=== PATIENT | male | born 1960 | race Hispanic/Latino ===

== ENCOUNTER 2018-04-03 07:00 | Day surgery (SDC) | payer MEDICARE ==
[2018-04-01 14:45] LABS: APPEARANCE,URINE Clear (CLEAR); BILIRUBIN,URINE Negative (NEGATIVE); COLOR,URINE Yellow (YELLOW); GLUCOSE, URINE (UA) Negative (NEGATIVE); KETONES,URINE Negative (NEGATIVE); LEUKOCYTE ESTERASE ,URINE Negative (NEGATIVE); NITRATE,URINE Negative (NEGATIVE); OCCULT BLOOD,URINE Negative (NEGATIVE); PH,URINE 6.5 (5.0-8.0); PROTEIN,URINE Negative (NEGATIVE); UROBILINOGEN,URINE 0.2 mg/dL (0.2-1.0)
[2018-04-01 14:45] LABS: BASOPHILS % (AUTO) 0.5 % (0.0-5.0); EOSINOPHILS % (AUTO) 1.5 % (0.0-8.0); HEMATOCRIT 40.9 % (42-54); LYMPHOCYTES % (AUTO) 21.2 % (21.0-51.0); MEAN CORPUSCULAR HEMOGLOBIN 32.5 pg (27.0-33.0); MEAN CORPUSCULAR HGB CONC 34.4 g/dL (32.0-36.0); MEAN CORPUSCULAR VOLUME 94.4 fL (79-99); MONOCYTES % (AUTO) 7.7 % (3.0-13.0); NEUTROPHILS % (AUTO) 69.1 % (40.0-77.0); NUCLEATED RED BLOOD CELLS 0.1 % (0.0-0.19); PLATELET COUNT (AUTO) 285 K/uL (130-400); RED BLOOD CELL COUNT(AUTO) 4.33 MIL/uL (4.50-6.20); RED CELL DISTRIBUTION WIDTH 13.6 % (11.0-15.5); WHITE BLOOD COUNT (AUTO) 7.7 K/uL (4.8-10.8)
[2018-04-01 14:48] VITALS: BP 138/80
[2018-04-01 15:01] LABS: INR 0.94 (0.85-1.15); PARTIAL THROMBOPLASTIN TIME 30.3 SEC (26.3-35.5); PROTHROMBIN TIME 9.9 SEC (9.6-11.6)
[2018-04-01 15:08] LABS: CREATININE 0.9 mg/dL (0.5-1.5); POTASSIUM 4.1 mmol/L (3.5-5.1)
[~2018-04-03] VITALS: Ht 172.7 cm; Wt 94.3 kg
[2018-04-03] VITALS (19 sets, daily range): BP systolic 120–148; BP diastolic 77–93
[~2018-04-03 07:00] MED LIST: ATOR20TA65 PO; BUPR-47 PO; GABA-531 PO; LISI10TA7 PO; METO5AMP IV; SODIUM CHLORIDE 0.9% 500ML 500 ML IV SCH; TICA90TA PO
[2018-04-03] MEDS ORDERED: METO25TA6 PO (08:21)
[2018-04-03] MEDS ORDERED: LISI-613 PO (08:21)
[2018-04-03] MEDS ORDERED: IOHEXOL-350 50ML VIAL IV ONE (08:26)
[2018-04-03] MEDS ORDERED: NITROGLYCERIN 5 MG/ML 10 ML VIAL IV ONE (08:26)
[2018-04-03] MEDS ORDERED: IOHEXOL 350 MG/ML 100ML INFUS..BTL IV ONE ×2 (08:26→09:18)
[2018-04-03] MEDS ORDERED: LIDOCAINE HCL 2% 20ML ONE (08:26)
[2018-04-03] MEDS ORDERED: ROPI1TAB11 PO (08:37)
[2018-04-03] MEDS ORDERED: RANO500T2 PO (08:37)
[2018-04-03] MEDS ORDERED: LORA10CA9 PO (08:37)
[2018-04-03] MEDS ORDERED: NITR0.4T50 SL (08:37)
[2018-04-03] MEDS ORDERED: TYL3 PO (08:37)
[2018-04-03] MEDS ORDERED: TAMS0.4C32 PO (08:37)
[2018-04-03] MEDS ORDERED: AMLO10TA6 PO (08:37)
[2018-04-03] MEDS ORDERED: GABA-529 PO (08:37)
[2018-04-03] MEDS ORDERED: MIDAZOLAM HCL 1 MG/ML 2ML VIAL ONE ×2 (09:11→10:32)
[2018-04-03] MEDS ORDERED: FENTANYL CITRATE PF 50 MCG/1 ML 2ML VIAL ONE (09:12)
[2018-04-03] MEDS ORDERED: BIVALIRUDIN 250 MG/VIAL IV ONE (09:18)
[2018-04-03] MEDS ORDERED: SODIUM CHLORIDE 0.9% 1000ML 1,000 ML IV SCH (09:40)
[2018-04-03] MEDS ORDERED: GLUCAGON 1MG KIT 1 MG ML IM PRN (09:45)
[2018-04-03] MEDS ORDERED: HYDRALAZINE HCL 20 MG/ML VIAL IV PRN (09:45)
[2018-04-03] MEDS ORDERED: DEXTROSE 50%-WATER 50 ML DISP.SYRIN IV PRN (09:45)
[2018-04-03] MEDS ORDERED: ATROPINE SULFATE 0.1 MG/ML 10 ML SYG IVP ONE (10:14)
[2018-04-03] MEDS ORDERED: MORPHINE SULFATE 5 MG/ML VIAL ONE (10:32)
== END 2018-04-03 15:00 | disposition home or self-care (01) ==
LOC: SUH 07:00 → DAH 07:00 → SUH 15:00
PROVIDERS: ATTEND Internal Medicine Cardiovascular Disease
DX: I25.110 Atherosclerotic heart disease of native coronary artery with unstable angina pectoris (principal); R07.9 Chest pain, unspecified; Z79.899 Other long term (current) drug therapy; Z79.01 Long term (current) use of anticoagulants; I11.0 Hypertensive heart disease with heart failure; I50.32 Chronic diastolic (congestive) heart failure; Z68.30 Body mass index [BMI] 30.0-30.9, adult
CPT/HCPCS: 36415; 71045; 80048; 81003; 85025; 85610; 85730; 93005; 93458; A4606 ×2; C1894 ×2; J1644; J2250 ×2; J2270; J3010; J3490 ×2; Q9967 ×2; 99156; 99157; J0461; J0583

== ENCOUNTER → 2020-12-20 | Outpatient (CLI) | payer OTHER, MEDICARE ==
[~2020-12-20] MED LIST changes: +AMLO-258 PO; -BUPR-47 PO; +GABA-529 PO; -GABA-531 PO; -LISI10TA7 PO; +LISI20TA24 PO; +LORA10CA9 PO; +METO25TA6 PO; -METO5AMP IV; +NITR0.4T50 SL; +RANO500T2 PO; +ROPI1TAB13 PO; -SODIUM CHLORIDE 0.9% 500ML 500 ML IV SCH; +TAMS0.4C32 PO; +TYL3 PO
== END | disposition home or self-care (01) ==
LOC: SHCH 14:18
PROVIDERS: ATTEND Internal Medicine Cardiovascular Disease
DX: I51.7 Cardiomegaly (principal); E66.9 Obesity, unspecified; E78.5 Hyperlipidemia, unspecified
CPT/HCPCS: 93306; 93356

== ENCOUNTER 2023-09-06 17:24 | Emergency (ER) | payer OTHER, MEDICARE ==
[~2023-09-06] VITALS: Ht 175.3 cm; Wt 92.5 kg
[~2023-09-06 17:24] MED LIST changes: -ROPI1TAB13 PO; +ROPI1TAB46 PO
[2023-09-06 17:28] VITALS: BP 137/78; PULSE 108; RESP 18
[2023-09-06 18:19] LABS: BASOPHILS # (AUTO) 0.04 K/uL (0.00-0.20); BASOPHILS % (AUTO) 0.4 % (0.0-5.0); HEMATOCRIT 45.2 % (42-54); IMMATURE GRANULOCYTE ABSOLUTE 0.03 K/uL (0-1); LYMPHOCYTES % (AUTO) 19.3 % (21.0-51.0); MEAN CORPUSCULAR HEMOGLOBIN 32.2 pg (27.0-33.0); MEAN CORPUSCULAR HGB CONC 35.2 g/dL (32.0-36.0); MEAN CORPUSCULAR VOLUME 91.5 fL (79-99); MONOCYTES # (AUTO) 0.5 K/uL (0.1-1.0); MONOCYTES % (AUTO) 4.8 % (3.0-13.0); NEUTROPHILS # (AUTO) 7.9 K/uL (1.8-7.7); NEUTROPHILS % (AUTO) 75.2 % (40.0-77.0); PLATELET COUNT (AUTO) 313 K/uL (130-400); RED BLOOD CELL COUNT(AUTO) 4.94 MIL/uL (4.50-6.20); RED CELL DISTRIBUTION WIDTH 13.5 % (11.0-15.5); WHITE BLOOD COUNT (AUTO) 10.5 K/uL (4.8-10.8)
[2023-09-06 18:30] LABS: CREATININE 2.7 mg/dL (0.5-1.3); POTASSIUM 4.1 mmol/L (3.5-5.1)
[2023-09-06 18:39] LABS: ALBUMIN 4.6 g/dL (3.5-5.0); BILIRUBIN,TOTAL 0.6 mg/dL (0.2-1.0); TOTAL PROTEIN, SERUM 9.7 g/dL (6.0-8.3)
[2023-09-06] MEDS: 0.9%NACL 1000ML 1,000 ML IV ONE ×2 (19:38→22:08)
[2023-09-06 20:58] LABS: CREATININE 2.2 mg/dL (0.5-1.3); POTASSIUM 3.9 mmol/L (3.5-5.1)
[2023-09-06 21:03] LABS: BILIRUBIN,TOTAL 0.5 mg/dL (0.2-1.0); TOTAL PROTEIN, SERUM 8.7 g/dL (6.0-8.3)
[2023-09-06 23:36] LABS: APPEARANCE,URINE CLOUDY (CLEAR); BILIRUBIN,URINE NEGATIVE (NEGATIVE); COLOR,URINE YELLOW (YELLOW); GLUCOSE, URINE (UA) NEGATIVE (NEGATIVE); KETONES,URINE NEGATIVE (NEGATIVE); LEUKOCYTE ESTERASE ,URINE 75 Leu/uL (NEGATIVE); NITRATE,URINE NEGATIVE (NEGATIVE); PROTEIN,URINE 20 mg/dL (NEGATIVE); UROBILINOGEN,URINE 0.2 mg/dL (0.2-1.0)
[2023-09-06 23:37] LABS: ADD UA MICROSCOPIC YES
[2023-09-06 23:50] LABS: HYALINE CASTS, URINE 51-100 /LPF (0-1 /LPF); MUCUS,URINE RARE LPF (None Seen); SQUAMOUS EPITHELIAL CELL,UR RARE /HPF (0-2)
[2023-09-07 00:03] LABS: CREATININE 1.8 mg/dL (0.5-1.3); POTASSIUM 4.1 mmol/L (3.5-5.1)
== END 2023-09-07 00:40 | disposition home or self-care (01) ==
LOC: EDH 17:24
DX: E86.0 Dehydration (principal); N17.9 Acute kidney failure, unspecified; I10 Essential (primary) hypertension; E11.9 Type 2 diabetes mellitus without complications; Z79.02 Long term (current) use of antithrombotics/antiplatelets; Z88.0 Allergy status to penicillin
CPT/HCPCS: 99283; 96360; 82550; 83735; 85025; 85651; 87088; 86140; 81001; 36415; 80048; 80053 ×2; J7030 ×2

== ENCOUNTER 2024-03-18 05:41 | Emergency (ER) | payer OTHER, MEDICARE ==
[~2024-03-18] VITALS: Ht 172.7 cm; Wt 103.9 kg
--- NOTE | 2024-03-18 07:23 | ERN ---
General Chief Complaint: Nosebleed Stated Complaint: C/O NOSEBLEED Time Seen by MD: 07:08 Source: patient History of Present Illness Initial Comments In his is a 64-year-old male coming in to be evaluated for epistaxis. Patient states that the epistaxis began earlier today. No fever no chills nausea no vomiting. Patient has had this before but states at today was uncontrollable. Allergies: Coded Allergies: Penicillins (Unverified Allergy, Unknown, 11/14/16) adalimumab (Unverified Allergy, Unknown, 04/01/18) apremilast (Unverified Allergy, Unknown, 11/14/16) Home Meds Active Scripts Atorvastatin Calcium (Atorvastatin Calcium) 20 Mg Tablet, 20 MG PO HS for 60 Days, TAB Prov:ABEL HUNTLEY 04/10/17 Ticagrelor (Brilinta) 90 Mg Tablet, 90 MG PO BID for 60 Days, TAB Prov:ABEL HUNTLEY 04/10/17 Reported Medications Ropinirole HCl (Ropinirole HCl) 1 Mg Tablet, 1 MG PO DAILY PRN for CRAMPS, TAB 04/03/18 Nitroglycerin (Nitroglycerin) 0.4 Mg Tab.subl, 0.4 MG SL Q5MIN X3 DOSES PRN for CHEST PAIN, TAB.SL 04/03/18 Loratadine (Loratadine) 10 Mg Capsule, 10 MG PO DAILY, CAP 04/03/18 Ranolazine (RANEXA) 500 Mg Tab.er.12h, 500 MG PO BID, TAB 04/03/18 Gabapentin (Gabapentin) 100 Mg Capsule, 100 MG PO BID, CAP 04/03/18 Acetaminophen with Codeine (Tylenol with Codeine #3) 1 Tab Tab, 1 TAB PO Q6HPRN PRN for BACK PAIN, TAB 04/03/18 Tamsulosin HCl (Tamsulosin HCl) 0.4 Mg Cap.er.24h, 0.4 MG PO DAILY, CAPSULE.DR 04/03/18 Amlodipine Besylate (Amlodipine Besylate) 10 Mg Tablet, 10 MG PO DAILY, TAB 04/03/18 Lisinopril (Lisinopril) 20 Mg Tablet, 20 MG PO BID, TAB 04/03/18 Metoprolol Tartrate (Metoprolol Tartrate) 25 Mg Tablet, 25 MG PO BID, TAB 04/03/18 Past Medical History Past Medical History: Hypertension Past Surgical History: Other Surgical History Other: CARDIAC STENTS ROS Dictation CONSTITUTIONAL: No chills, no fever, no weakness, no diaphoresis, no malaise. HEAD/FACE: No signs of trauma. EENT: No eye pain, no blurred vision, no tearing, no double vision, no ear pain, no ear discharge, no nose pain, no nasal congestion, nasal bleed RESPIRATORY: No cough, no orthopnea, no SOB, no stridor, no wheezing. CARDIOVASCULAR: No chest pain, no edema, no palpitations, no syncope. GASTROINTESTINAL/ABDOMINAL: No abdominal pain, no constipation, no diarrhea, no nausea, no vomiting. GENITOURINARY: No abnormal discharge, no dysuria, no frequent urination, no hematuria. No complaints of pain in the genitals. MUSCULOSKELETAL: No back pain, no gout, no joint pain, no joint swelling, no muscle pain, no muscle stiffness, no neck pain. INTEGUMENTARY: No change in color, no change in hair/nails, no dryness, no lesion, no lumps, no rash. NEUROLOGICAL/PSYCH: No anxiety, not depressed, no emotional problem, no headache, no numbness, no pre-existing deficit, no history of seizures, no tremors, no weakness. HEMATOLOGIC/LYMPHATIC: Not anemic, no history of blood clots, no apparent bleeding, no bruising, glands not swollen. All Systems Negative, Except as Noted. Physical Exam Physical Exam Dictation VITAL SIGNS: Reviewed. GENERAL APPEARANCE: Alert, oriented x3, no acute distress, obese. HEAD AND FACE: Non-traumatic. EYES: PERRL, pink conjunctivas, eyelid no trauma, anterior chamber clear. EARS: Pinnas intact and no signs of trauma or erythema. Ear canals clear and no discharge. TMs no erythema. NOSE: No discharge, bleeding in the right Al OROPHARYNX: Mouth normal, teeth no caries, tongue pink. Pharynx clear, no erythema. Tonsils no exudates, no abscesses noted. Mucous membrane moist. NECK: Supple, non-tender, no thyromegaly, no masses, no JVD, no bruits. BREAST: Deferred. CHEST: No tenderness, no crepitus, no paradoxical movement, no retractions. LUNGS: Clear, well-ventilated, symmetric, no rales, no wheezing, no rhonchi, no stridor, good breath sounds bilaterally. HEART: Regular rate, regular rhythm, no murmur, no gallops. VASCULAR: No peripheral edema. ABDOMEN: Soft, positive bowel sounds, nondistended, no guarding, nontender, no rebound, no masses no hepatomegaly, no splenomegaly, no Robledo's sign, no hernias. RECTAL: Deferred. GENITAL: Deferred. NEUROLOGICAL: Normal speech, gross motor function intact, gross sensory function intact. MUSCULOSKELETAL: Neck nontender, full range of motion, back nontender, full range of motion. EXTREMITIES: Nontender, full range of motion. SKIN: Color pink, dry, no turgor, no rash, no lacerations, no abrasions, no contusions. LYMPHATICS: Deferred. Results Laboratory and Microbiology Labs Reviewed?: Yes MDM MDM: Differential diagnosis: Epistaxis posterior, epistaxis anterior, nasal fracture, Patient is a 64-year-old male coming in to be evaluated for right side epistaxis. Nasal clip was applied epistaxis controlled. Patient received Afrin and right Al packing with rhino rocket. Patient tolerated procedure well epi staxis well controlled be discharged in stable condition. ED Course Orders Procedure Category Date Status Time Oxymetazolone Hcl PHA 03/18/24 Complete [place] (Afrin) 07:10 Neomycin/Polymyxn PHA 03/18/24 Complete B/Gramicidin (Neospori 07:10 Neomy PHA 03/18/24 Complete Sulf/Bacitra/Polymyxin 07:13 Current Medications Medications (Trade) Dose Ordered Sig/Lynne Route PRN Reason Start Time Stop Time Status Last Admin Dose Admin Neomycin/ Polymyxin/ Bacitracin (Triple Antibiotic Ointment) 1 appl STK-MED ONCE TP 03/18/24 07:13 03/18/24 07:13 DC Neomycin/ Polymyxin/ Gramicidin (Neosporin) 2 drop ONCE STAT OD 03/18/24 07:10 03/18/24 07:11 DC Oxymetazoline HCl (AFrin) 2 sprays ONCE STAT EN 03/18/24 07:10 03/18/24 07:11 DC Vital Signs Date Time Temp Pulse Resp B/P (MAP) Pulse Ox O2 Delivery O2 Flow Rate FiO2 03/18/24 05:43 96.4 73 20 185/109 96 Room Air Procedure Dictation Rhino rocket introduced in the right Al after it was coated with bacitracin, patient also received Afrin helped with the discomfort. Patient will be discharged in stable condition after epistaxis was controlled. DX & DISP Disposition: Discharge Departure Impression: Primary Impression: Epistaxis Condition: Stable Additional Instructions: FOLLOW-UP WITH PRIMARY CARE PROVIDER IN 1 TO 2 DAYS. TAKE MEDICATIONS DIRECTED HERE IN THE EMERGENCY ROOM. OKAY TO CONTINUE HOME MEDICATIONS UNLESS OTHERWISE DISCUSSED DURING YOUR VISIT IN THE EMERGENCY ROOM TODAY. RETURN TO YOUR NEAREST EMERGENCY ROOM IF SYMPTOMS WORSEN OR IF THERE IS NO IMPROVEMENT. CALL 911 IF YOU NEED IMMEDIATE ASSISTANCE. TAKE TYLENOL [id number] NEEDED AND IF NO CONTRAINDICATIONS ARE PRESENT. INCREASE ORAL HYDRATION. A WOUND CULTURE OR URINE CULTURE WAS ORDERED HERE IN THE EMERGENCY ROOM DEPARTMENT PLEASE FOLLOW-UP WITH PRIMARY CARE PROVIDER AND ADVISE THEM TO GET REPEAT PORTS FROM OUR FACILITY. IF YOU HAD ANY AMANDA WRAP/SPLINTS THAT WERE APPLIED HERE, PLEASE DO NOT REMOVE THEM UNTIL YOU SEE YOUR PRIMARY CARE OR SPECIALTY. Referrals: Referrals: GRETA HUNTLEY MD (PCP) MIS SPRAGUE III, MD Time of Disposition: 07:22 JUAN MANUEL MARQUEZ MD Mar 18, 2024 07:23
[2024-03-18] MEDS: OXYmetazolone HCL SPRAY 15 ML BOTTLE EN STA (07:29)
[2024-03-18] MEDS: NEOMY SULF/BACITRA/POLYMYXIN B 1 EACH PACKET TP ONE (07:29)
[2024-03-18 07:30] VITALS: BP 161/92; PULSE 72; RESP 20; TEMP 97.9; O2SAT 97
[2024-03-18] MEDS: NEOMYCIN OD STA (07:30)
[2024-03-18] MEDS: POLYMYXIN B OD STA (07:30)
[2024-03-18] MEDS: GRAMICIDIN OD STA (07:30)
== END 2024-03-18 07:37 | disposition home or self-care (01) ==
LOC: EDH 05:41
DX: R04.0 Epistaxis (principal); I10 Essential (primary) hypertension; Z79.02 Long term (current) use of antithrombotics/antiplatelets; Z88.0 Allergy status to penicillin; Z95.5 Presence of coronary angioplasty implant and graft
CPT/HCPCS: 99284

== ENCOUNTER → 2024-04-11 | Outpatient (CLI) | payer OTHER, MEDICARE | END | disposition home or self-care (01) | LOC: SHCH 12:35 | PROVIDERS: ATTEND Internal Medicine Cardiovascular Disease | DX: I20.0 Unstable angina (principal); R06.09 Other forms of dyspnea | CPT/HCPCS: 93306 ==

== ENCOUNTER → 2024-04-28 | Outpatient (CLI) | payer OTHER, MEDICARE ==
[2024-04-28] MEDS: REGADENOSON 0.4 MG/5 ML PF SYG IVP ONE (11:35)
== END | disposition home or self-care (01) ==
LOC: SHCH 08:38
PROVIDERS: ATTEND Internal Medicine Cardiovascular Disease
DX: I20.0 Unstable angina (principal); R06.09 Other forms of dyspnea
CPT/HCPCS: 78452; 93017; J2785; A9500 ×2

== ENCOUNTER 2024-07-06 05:45 | Observation (INO) | payer OTHER, MEDICARE ==
[2024-07-02 11:42] LABS: BASOPHILS # (AUTO) 0.04 K/uL (0.00-0.20); BASOPHILS % (AUTO) 0.6 % (0.0-5.0); EOSINOPHILS # (AUTO) 0.14 K/uL (0.00-0.70); EOSINOPHILS % (AUTO) 2.1 % (0.0-8.0); IMMATURE GRANULOCYTE ABSOLUTE 0.02 K/uL (0-1); LYMPHOCYTES # (AUTO) 2.6 K/uL (1.0-4.8); LYMPHOCYTES % (AUTO) 40.2 % (21.0-51.0); MEAN CORPUSCULAR HEMOGLOBIN 31.8 pg (27.0-33.0); MEAN CORPUSCULAR HGB CONC 34.9 g/dL (32.0-36.0); MEAN CORPUSCULAR VOLUME 91.1 fL (79-99); MONOCYTES # (AUTO) 0.6 K/uL (0.1-1.0); MONOCYTES % (AUTO) 8.4 % (3.0-13.0); NEUTROPHILS # (AUTO) 3.2 K/uL (1.8-7.7); NEUTROPHILS % (AUTO) 48.4 % (40.0-77.0); PLATELET COUNT (AUTO) 283 K/uL (130-400); RED BLOOD CELL COUNT(AUTO) 4.28 MIL/uL (4.50-6.20); RED CELL DISTRIBUTION WIDTH 13.3 % (11.0-15.5); WHITE BLOOD COUNT (AUTO) 6.6 K/uL (4.8-10.8)
[2024-07-02 11:49] LABS: CREATININE 0.9 mg/dL (0.5-1.3); POTASSIUM 3.9 mmol/L (3.5-5.1)
[2024-07-02 11:51] LABS: INR 0.97 (0.85-1.15); PROTHROMBIN TIME 10.3 SEC (9.6-11.6)
[2024-07-02 11:52] LABS: PARTIAL THROMBOPLASTIN TIME 29.4 SEC (26.3-35.5)
--- NOTE | 2024-07-02 12:15 | EKG ---
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
[2024-07-02 12:17] VITALS: BP 157/79; PULSE 71; RESP 18; TEMP 98.4
--- NOTE | 2024-07-02 16:17 | HMCIMG ---
CHEST 1VW HISTORY: Preop COMPARISON: 04/01/2018 FINDINGS: A frontal projection of the chest was obtained. No acute pulmonary infiltrates is seen. The heart is normal in size. Prominent interstitial markings are seen. Degenerative changes are seen. No evidence of aortic calcification is seen. IMPRESSION: 1. No acute pulmonary infiltrate is seen.
[~2024-07-06] VITALS: Ht 175.3 cm; Wt 103.4 kg
[2024-07-06] VITALS (17 sets, daily range): BP systolic 103–154; BP diastolic 57–93; PULSE 60–78; RESP 11–20; TEMP 97.2–98.7; O2SAT 96
[~2024-07-06 05:45] MED LIST changes: +AMLO-257 PO; -AMLO-258 PO; -ATOR20TA65 PO; +CLOT15CR23 TP; +CYCL-309 PO; -GABA-529 PO; +GABA300C PO; +IBUP-2070 PO; +ISOS30TA92 PO; +LOPE2TAB26 PO; -LORA10CA9 PO; -METO25TA6 PO; -NITR0.4T50 SL; -RANO500T2 PO; -ROPI1TAB46 PO; -TAMS0.4C32 PO; +TICA60TA PO; -TICA90TA PO; +TREMFYA INJ; -TYL3 PO
[2024-07-06] MEDS: 0.9%NACL 1000ML 1,000 ML IV SCH ×2 (06:34→09:00)
[2024-07-06] MEDS ORDERED: LIDOCAINE HCL 400MG/20ML VIAL ONE (07:14)
[2024-07-06] MEDS ORDERED: HEParin-NS 1,000 UNIT/500 ML 1,000 ML IV ONE (07:15)
[2024-07-06] MEDS ORDERED: IOHEXOL 350 MG/ML 100ML INFUS..BTL IV ONE (07:15)
[2024-07-06] MEDS ORDERED: MIDAZOLAM HCL 1 MG/ML 2ML VIAL ONE ×2 (07:15→08:00)
[2024-07-06] MEDS ORDERED: BIVALIRUDIN 250 MG/VIAL IV ONE (07:15)
[2024-07-06] MEDS ORDERED: FENTanyl CITRate PF 50 MCG/1 ML 2ML VIAL ONE (07:15)
[2024-07-06] MEDS ORDERED: HEParin 10,000 UNIT/10ML (1,000 UNIT/ML) VIAL ONE (07:15)
[2024-07-06] MEDS ORDERED: NITROGLYCERIN 50MG VIAL ONE (07:16)
[2024-07-06] MEDS ORDERED: cloPIDOgrel 300MG TAB ONE (08:21)
--- NOTE | 2024-07-06 08:41 | PRN ---
PROCEDURES: 1. Right common femoral arterial sheath placement. 2. Selective coronary angiogram. 3. Left heart catheterization. 4. Conscious sedation 5. Angioplasty and stent placement to inferior branch of ramus intermediate with the placement of a 2.5 mm x 30 mm resolute grace stent deployed to 2.60 mm INDICATION: Class 2 angina Abnormal stress test for lateral wall ischemia Known coronary artery disease Previous stent placement to superior branch of ramus intermediate DESCRIPTION OF PROCEDURE: The patient was brought to the catheterization suite and prepped and draped in sterile fashion. IV was started, and not already in place and both groins were exposed for arterial access. 1% lidocaine was used for local anesthesia and then a micropuncture kit was used to gain access once free-flowing blood was seen, modified Seldinger technique was utilized to place a 6 [place] sheath into the right common femoral artery. Next, preformed JL4 and JR 4 catheters were used to selectively engage the [place] coronary vessels and multiple hand contrast injections were performed in different views to define the coronary anatomy. Please see below FINDINGS: The left main artery trifurcates into the LAD, ramus intermediate and left circumflex vessel. There was no significant stenosis of the left main artery. The left anterior descending artery and its diagonal branch system free of any significant disease. The ramus intermediate which has a high bifurcation has a stent noted in its superior branch that is patent with the inferior branch having diffuse ostial to mid stenosis of 85-95%. This is more prominent compared to last angiogram dated 2018. The left circumflex artery and its obtuse marginal branch system is free of any significant disease. The right coronary artery is a dominant system giving rise to the PDA and RPL and has no stenosis present. INTERVENTIONAL REPORT: After diagnostic coronary angiography was performed it was felt intervention should be done to inferior branch of ramus intermediate which had progressive disease involving stenosis of 85-95% in a patient who was still having ongoing angina in the setting of long-acting nitrate therapy. Therefore a 6 [place] Q 4 guide catheter was placed into the left coronary system and a Choice PT extra- support 0.014 in wire was then placed into the inferior branch of the ramus intermediate. Steep CORRINE caudal viewing revealed that superior branch of ramus intermediate and inferior branch were noted to be nicely separate from previously placed stent therefore a 2.5 mm x 20 mm balloon was then used to pre dilate the inferior branch of the ramus intermediate up to 2.55 mm. Next a 2.5 mm x 30 mm resolute grace stent was then placed into the ostial proximal and mid inferior branch of the ramus intermediate and deployed. This was deployed to 2.60 mm or 14 atmospheres. Follow up contrast injection revealed no evidence of dissection or perforation with EFRAÍN 3 flow noted. At end of case a Mynx device was used for closure of arteriotomy site and no complications occurred. RECOMMENDATIONS: Patient will be monitored overnight IV hydration for 6 hours Discharge in a.m. Increase Brilinta to 90 mg twice daily Patient has an aspirin allergy JAIVER MCRAE MD Jul 06, 2024 08:40
[2024-07-06] MEDS ORDERED: NITROGLYCERIN 0.4 MG SL TAB SL PRN (09:00)
[2024-07-06] MEDS ORDERED: metoPROLOL tartRATE 1 MG/ML 5ML VIAL IV PRN (09:00)
[2024-07-06] MEDS ORDERED: GLUCAGON 1MG KIT 1 MG ML IM PRN (09:00)
[2024-07-06] MEDS ORDERED: DEXTROSE 50%-WATER 50 ML DISP.SYRIN IV PRN (09:00)
--- NOTE | 2024-07-06 10:30 | NUR ---
URINARY: PT VOIDED 450CC DARK YELLOW COLOR URINE PER URINAL WITHOUT DIFFICULTY.
--- NOTE | 2024-07-06 11:38 | NUR ---
URINARY: VOIDED 125CC DARK YELLOW COLOR URINE PER URINAL.
--- NOTE | 2024-07-06 13:00 | NUR ---
REPORT: HAND-OFF COMMUNICATION GIVEN TO EBONY FAUSTIN RN.
[2024-07-06] MEDS: HYDROcodone/APAP 5/325 1 TAB TABLET PO PRN (14:14)
--- NOTE | 2024-07-06 17:30 | NUR ---
pt arrived from day patient at this time. pt s/p cathlab at 0800 today.pt [id number] . vitals as charted. right groin soft and tender per pt . as per day surgery nurse pt already received pain meds. no bleeding nor hematoma noted, palpable pedal pulses present.
--- NOTE | 2024-07-06 17:49 | NUR ---
PT COMPLAINING OF CHEST PAIN NON RADIATING ,PAIN LEVEL AT 7 OUT OF 10 , EKG PERFORMED AT THIS TIME AND INFORMED TO DR. MCRAE. NEW ORDER FOR MORPHINE 3MG Q4HRS PRN FOR CHEST PAIN AND X1 TIME FOR TROPONIN HIGH SENSITIVITY LAB TO BE DONE. PT VITALS STABLE , EKG REVIEWED BY DR. MCRAE.
--- NOTE | 2024-07-06 17:49 | NUR ---
PT COMPLAINING OF CHEST PAIN, EKG PERFORMED AT THIS TIME AND INFORMED TO DR. MCRAE. NEW ORDER FOR MORPHINE 3MG Q4HRS PRN FOR CHEST PAIN AND X1 TIME FOR TROPONIN HIGH SENSITIVITY. PT VITALS STABLE , EKG REVIEWED BY DR. MCRAE. Addendum: 07/06/24 at 1801 by RASHAD GARVEY RN RN DUPLICATE
[2024-07-06] MEDS: morPHINE 4 MG SYG IVP PRN (18:09)
--- NOTE | 2024-07-06 18:20 | EKG ---
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
--- NOTE | 2024-07-06 18:35 | NUR ---
DR. MCRAE MADE AWARE OF TROPONIN LEVEL OF 131. PER DR. MCRAE ORDER REPEAT TROPONIN FOR AM.
[2024-07-06] MEDS: TICAGrelor 90 MG TABLET PO SCH (20:16)
[2024-07-07 03:59] VITALS: BP 124/73; PULSE 53; RESP 20; TEMP 98
[2024-07-07 07:56] VITALS: BP 125/78; PULSE 68; RESP 20; TEMP 98.4
[2024-07-07 08:00] VITALS: O2SAT 96
--- NOTE | 2024-07-07 08:01 | PN ---
PROGRESS NOTE PROBLEM LIST: Class 2 angina Abnormal stress test for lateral wall ischemia Known history of stent placement to ramus intermediate 2016 Known coronary atherosclerosis involving the inferior branch of ramus intermediate Status post coronary angiography on July 06, 2024 revealing patent ramus intermediate stent of superior branch with progressive critical stenosis of inferior branch at 95% Status post angioplasty and stent placement to inferior branch of ramus intermediate with the use of a 2.5 mm x 30 mm resolute grace stent deployed to 2.60 mm INTERIM HISTORY OF PRESENT ILLNESS: Overnight patient did have some chest discomfort cardiac enzymes were drawn and did not meet criteria for any evidence of myocardial necrosis. Telemetry remained unremarkable and repeat EKGs were within normal limits with no ischemia. REVIEW OF SYSTEMS: No fever, headache, chest pain, abdominal pain, nausea, vomiting, or diarrhea. VITAL SIGNS Vital Signs Date Time Temp Pulse Resp B/P (MAP) Pulse Ox O2 Delivery O2 Flow Rate FiO2 07/07/24 07:56 98.4 68 20 125/78 99 Room Air 07/06/24 20:00 0 21 LABS/MEDS Laboratory Tests Test 07/06/24 09:14 07/06/24 18:05 07/07/24 04:05 Whole Blood Glucose 114 MG/DL (70-110) H Troponin I High Sensitivity 131 ng/L (4-75) *H 309 ng/L (4-75) *H Current Medications Sodium Chloride 1,000 ml @ 0 mls/hr Q0M IV Last administered on 07/06/24at 06:34; Start 07/06/24 at 06:30; Stop 08/05/24 at 06:29 Lidocaine HCl 20 ml STK-MED ONCE .ROUTE; Start 07/06/24 at 07:14; Stop 07/06/24 at 07:15; Status DC Fentanyl Citrate 100 mcg STK-MED ONCE .ROUTE; Start 07/06/24 at 07:15; Stop 07/06/24 at 07:15; Status DC Midazolam HCl 2 mg STK-MED ONCE .ROUTE; Start 07/06/24 at 07:15; Stop 07/06/24 at 07:15; Status DC Iohexol 35,000 mg STK-MED ONCE IV; Start 07/06/24 at 07:15; Stop 07/06/24 at 07:15; Status DC Bivalirudin 250 mg STK-MED ONCE IV; Start 07/06/24 at 07:15; Stop 07/06/24 at 07:16; Status DC Heparin Sodium (Porcine) 10,000 unit STK-MED ONCE .ROUTE; Start 07/06/24 at 07:15; Stop 07/06/24 at 07:16; Status DC Heparin Sodium/ Sodium Chloride 1,000 ml @ As Directed STK-MED ONCE IV; Start 07/06/24 at 07:15; Stop 07/06/24 at 07:16; Status DC Nitroglycerin 50 mg STK-MED ONCE .ROUTE; Start 07/06/24 at 07:16; Stop 07/06/24 at 07:16; Status DC Midazolam HCl 2 mg STK-MED ONCE .ROUTE; Start 07/06/24 at 08:00; Stop 07/06/24 at 08:00; Status DC Clopidogrel Bisulfate 300 mg STK-MED ONCE .ROUTE; Start 07/06/24 at 08:21; Stop 07/06/24 at 08:22; Status DC Sodium Chloride 1,000 ml @ 100 mls/hr Q10H IV; Start 07/06/24 at 09:00; Stop 07/06/24 at 14:59; Status DC Metoprolol Tartrate 5 mg Q5M PRN IV; Start 07/06/24 at 09:00 Ticagrelor 90 mg BID PO Last administered on 07/06/24at 20:16; Start 07/06/24 at 09:00; Stop 08/05/24 at 08:59 Nitroglycerin 0.4 mg AD PRN SL; Start 07/06/24 at 09:00; Stop 08/05/24 at 08:59 Dextrose 50 ml AD PRN IV; Start 07/06/24 at 09:00; Stop 08/05/24 at 08:59 Glucagon 1 mg AD PRN IM; Start 07/06/24 at 09:00; Stop 08/05/24 at 08:59 Acetaminophen/ Hydrocodone Bitart 1 tab Q6H PRN PO Last administered on 07/06/24at 23:50; Start 07/06/24 at 14:00; Stop 07/11/24 at 13:59 Morphine Sulfate 3 mg Q4H PRN IVP Last administered on 07/06/24at 18:09; Start 07/06/24 at 18:00; Stop 07/13/24 at 17:59 PHYSICAL EXAMINATION: GENERAL: No acute distress. HEENT: Normocephalic, atraumatic. CARDIAC: Positive S1 and S2. No murmurs. LUNGS: Clear to auscultation bilaterally. ABDOMEN: Bowel sounds present, soft, nontender. EXTREMITIES: No edema bilaterally. NEUROLOGIC: Cranial nerves 2-12 grossly intact. PSYCHIATRIC: Calm. TELEMETRY: Sinus rhythm ASSESSMENT: Class 2 angina status post 2.5 mm x 30 mm resolute grace stent to inferior branch of ramus intermediate deployed to 2.60 mm Aspirin allergy PLAN: At this time patient can be dismissed home today. EKGs have remained normal. I did check high sensitivity troponins and uninflamed were greater than 5 times the normal limit of reference range. Patient currently is symptom free and can be dismissed home today. Secondary to aspirin allergy he will be maintained on Brilinta at 90 mg twice daily. All questions have been answered the patient will be discharged home he has been instructed on no heavy lifting 5 lb or greater for 3 days and no driving for a total of 24 hours. Follow up appointment will be made. Prescription for Brilinta at 90 mg twice daily work was given to patient and he has been told to hold Brilinta that he was taking at 60 mg twice daily for this therapy JAVIER MCRAE MD Jul 07, 2024 08:01
--- NOTE | 2024-07-07 08:36 | EKG ---
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
[2024-07-07] MEDS: amLODIPine 5 MG TAB PO SCH (09:30)
[2024-07-07] MEDS: LISINOPRIL 20 MG TABLET PO SCH (09:30)
[2024-07-07] MEDS: ISOSORBIDE MONO 30MG SR TAB PO SCH (09:30)
--- NOTE | 2024-07-07 13:09 | NUR ---
UNABLE TO COMPLETE CASE MANAGMENT ASSESSMENT PRIOR TO PATIENT DISCHARGE. NO DISCHARGE CONCERNS VOICED BY PT, MD OR NURSE.
== END 2024-07-07 10:25 | disposition home or self-care (01) ==
LOC: DAH 05:45 → DAHIP 05:46 → 2AH 17:07
PROVIDERS: ADMIT Internal Medicine Cardiovascular Disease; ATTEND Internal Medicine Cardiovascular Disease
DX: I25.119 Atherosclerotic heart disease of native coronary artery with unspecified angina pectoris (principal); R07.9 Chest pain, unspecified; R06.09 Other forms of dyspnea; Z88.6 Allergy status to analgesic agent; Z98.890 Other specified postprocedural states; Z79.899 Other long term (current) drug therapy
CPT/HCPCS: 80048; 85025; 85610; 85730; 36415; 71045; 93005 ×3; 93454; 96374; 84484 ×2; 82948 ×2; C1769; C1887; C1894 ×2; C1725; C1874; C1760; Q9965 ×2; G0378 ×26; J3010; J3490 ×2; J7030; J2250 ×2; J2270; J1644; J0583; Q9967; A4215; A4223 ×3; A4222; A4221; A4663; A4216; A4606; C9600; 99156; 99157

== ENCOUNTER 2025-03-05 20:53 | Emergency (ER) | payer OTHER, MEDICARE ==
[~2025-03-05] VITALS: Ht 175.3 cm; Wt 120.2 kg
[~2025-03-05 20:53] MED LIST changes: +IBUP-1492 PO; -IBUP-2070 PO; -TREMFYA INJ
[2025-03-05 21:16] LABS: IMMATURE GRANULOCYTE ABSOLUTE 0.02 K/uL (0-1); NUCLEATED RED BLOOD CELLS 0.0 % (0.0-0.19); PLATELET COUNT (AUTO) 297 K/uL (130-400); RED BLOOD CELL COUNT(AUTO) 4.52 MIL/uL (4.50-6.20); RED CELL DISTRIBUTION WIDTH 13.3 % (11.0-15.5); WHITE BLOOD COUNT (AUTO) 8.2 K/uL (4.8-10.8)
[2025-03-05 21:26] LABS: CREATININE 1.6 mg/dL (0.5-1.3); GLOMERULAR FILTR. RATE CALC 48.0 mL/min (>90); GLUCOSE,RANDOM 134.0 mg/dL (70-105); SODIUM SERUM 130.0 mmol/L (136-145); UREA NITROGEN, BLOOD 31.0 mg/dL (7-18)
[2025-03-05 21:48] LABS: CREATINE KINASE, TOTAL 533.0 U/L (21-232)
--- NOTE | 2025-03-05 22:31 | ERN ---
ED Note History of Present Illness Stated Complaint: LEG CRAMPS Chief Complaint: Lower Extremity Pain/Injury Time Seen by MD: 20:56 Time Seen by Midlevel: 20:56 Dictation: The patient is a 65-year-old male with a history of CAD, hypertension who presen ts to the emergency department with complaints of bilateral lower extremity cramping onset just prior to arrival. Patient denies feeling wounds or any other associated symptoms. Reports he has had this episodes in the past and it was due to dehydration. Denies any fevers, nausea or vomiting. Allergies: Coded Allergies: Penicillins (Unverified Allergy, Unknown, 11/14/16) adalimumab (Unverified Allergy, Unknown, 04/01/18) apremilast (Unverified Allergy, Unknown, 07/02/24) aspirin (Unverified Allergy, Unknown, 07/07/24) Home Meds Reported Medications Clotrimazole (Clotrimazole) 1 % Cream..g., 1 APPL TP BID 07/02/24 Loperamide HCl (Loperamide) 2 Mg Tablet, 2 MG PO BID PRN for DIARRHEA, TAB 07/02/24 Gabapentin (Neurontin) 300 Mg Capsule, 300 MG PO BID PRN for PAIN, CAP 07/02/24 Amlodipine Besylate (Amlodipine Besylate) 5 Mg Tablet, 5 MG PO AM, TAB 07/02/24 Isosorbide Mononitrate (Isosorbide Mononitrate ER) 30 Mg Tab.er.24h, 30 MG PO AM, TAB 07/02/24 Cyclobenzaprine HCl (Cyclobenzaprine HCl) 10 Mg Tablet, 10 MG PO HS PRN for SPASM, TAB 07/02/24 Ticagrelor (Brilinta) 60 Mg Tablet, 60 MG PO BID, TAB 07/02/24 Ibuprofen (Ibuprofen) 600 Mg Tablet, 600 MG PO Q8H, TAB 07/02/24 Lisinopril (Lisinopril) 20 Mg Tablet, 20 MG PO BID, TAB 04/03/18 Past Medical History Past Medical History: CAD, Heart Disease, Hypertension Surgical History: Other Surgical History Other: CARDIAC STENTS RN Note Reviewed/Agreed w/PFSH: Yes Review of System Dictation Constitutional: Negative for fever,chills, and weight loss Eyes: Negative for injury, pain,redness, and discharge ENT: Negative for injury,pain or swelling Cardiovascular: Negative for chest pain, palpitations, and edema Respiratory: Negative for shortness of breath, cough, and wheezing, Abdomen/GI: Negative for abdominal pain, nausea, vomiting, diarrhea, and co nstipation Back: Negative for injury and pain : Negative for injury, bleeding and discharge MS/Extremity: Positive for lower extremity cramping Skin: Negative for rash, and discoloration Neuro: Negative for headache, weakness, numbness, tingling, and seizure Psych: Negative for suicide ideation, homicidal ideation, and hallucinations Initial Vital Sign VS Vital Signs Date Time Temp Pulse Resp B/P (MAP) Pulse Ox O2 Delivery O2 Flow Rate FiO2 03/05/25 20:55 97.5 98 18 156/95 98 03/05/25 22:12 Room Air* 0 21 Physical Exam Dictation Vital Signs reviewed General Appearance: Alert, oriented x 3, no acute distress, well developed, nourished. Head and Face: non-traumatic. Eyes: PERRL, pink conjunctivas, eyelid no trauma, anterior chamber with arcus senilis. Ears: Pinnas intact and no signs of trauma or erythema ear canals clear and no discharge TM no erythema Nose: No discharge, no bleeding. Oropharynx: Mouth normal, tongue pink. pharynx clear,no erythema, tonsils no exudates, no abscesses noted, mucous membrane moist Neck: Supple, non-tender, no thyromegaly, no masses, no JVD, no bruits Breast:Deferred Chest:No tenderness, no crepitus, no paradoxical movement, no retractions Lungs:Clear, well-ventilated, symmetric, no rales, no wheezing, no rhonchi, no stridor, good breath sounds bilaterally Heart: Regular rate, regular rhythm, no murmur, no gallops Vascular: no peripheral edema, Abdomen: Soft, positive bowel sounds, nondistended, no guarding, nontender, no rebound, no masses no hepatomegaly, no splenomegaly, no Robledo's sign, no hernias. Rectal: Deferred Genital: Deferred Neurological: Normal speech, motor function intact, sensory function intact Musculoskeletal: Neck nontender, full range of motion, back nontender, full range of motion, Extremities: nontender, full range of motion Skin: Color pink, dry, no turgor, no rash, no lacerations, no abrasions, no contusions. Lymphatic: Deferred Results (Laboratory/Radiology) Laboratory/Radiology Laboratory Tests Test 03/05/25 21:10 White Blood Count 8.2 K/uL (4.8-10.8) Red Blood Count 4.52 MIL/uL (4.50-6.20) Hemoglobin 14.4 g/dL (14.0-18.0) Hematocrit 42.1 % (42-54) Mean Corpuscular Volume 93.1 fL (79-99) Mean Corpuscular Hemoglobin 31.9 pg (27.0-33.0) Mean Corpuscular Hemoglobin Concent 34.2 g/dL (32.0-36.0) Red Cell Distribution Width 13.3 % (11.0-15.5) Platelet Count 297 K/uL (130-400) Mean Platelet Volume 9.4 fL (7.5-10.5) Immature Granulocyte % (Auto) 0.2 % (0-1) Neutrophils (%) (Auto) 62.1 % (40.0-77.0) Lymphocytes (%) (Auto) 27.2 % (21.0-51.0) Monocytes (%) (Auto) 8.7 % (3.0-13.0) Eosinophils (%) (Auto) 1.2 % (0.0-8.0) Basophils (%) (Auto) 0.6 % (0.0-5.0) Neutrophils # (Auto) 5.1 K/uL (1.8-7.7) Lymphocytes # (Auto) 2.2 K/uL (1.0-4.8) Monocytes # (Auto) 0.7 K/uL (0.1-1.0) Eosinophils # (Auto) 0.10 K/uL (0.00-0.70) Basophils # (Auto) 0.05 K/uL (0.00-0.20) Absolute Immature Granulocyte (auto 0.02 K/uL (0-1) Nucleated Red Blood Cells 0.0 % (0.0-0.19) Sodium Level 130 mmol/L (136-145) L Potassium Level 3.8 mmol/L (3.5-5.1) Chloride Level 94 mmol/L (101-111) L Carbon Dioxide Level 24 mmol/L (21-32) Blood Urea Nitrogen 31 mg/dL (7-18) H Creatinine 1.6 mg/dL (0.5-1.3) H Glomerular Filtration Rate Calc 48 mL/min (>90) Random Glucose 134 mg/dL (70-105) H Total Calcium 8.6 mg/dL (8.5-10.1) Magnesium Level 2.40 mg/dL (1.80-2.40) Total Creatine Kinase 533 U/L (21-232) #*H Labs Reviewed?: Yes ED Course ED Course Orders Procedure Category Date Status Time Cbc With Differential LAB 03/05/25 Complete 21: Creatine Kinase, Total LAB 03/05/25 Complete 21: Basic Metabolic Panel LAB 03/05/25 Complete 21: Magnesium LAB 03/05/25 Complete 21: 0.9%Nacl 1000ml (Ns PHA 03/05/25 Complete 1000ml) 21:30 Acetaminophen 500mg PHA 03/05/25 Complete Tab (Tylenol 500mg T 21:30 Current Medications Medications (Trade) Dose Ordered Sig/Lynne Route PRN Reason Start Time Stop Time Status Last Admin Dose Admin Acetaminophen (TYLenol 500MG TAB) 1,000 mg ONCE ONCE PO 03/05/25 21:30 03/05/25 22:11 DC 03/05/25 23:31 Sodium Chloride 1,000 ml @ 0 mls/hr ONCE ONCE IV 03/05/25 21:30 03/05/25 22:11 DC 03/05/25 23:31 Vital Signs Date Time Temp Pulse Resp B/P (MAP) Pulse Ox O2 Delivery O2 Flow Rate FiO2 03/05/25 22:12 97.5 87 18 142/74 98 Room Air* 0 21 03/05/25 20:55 97.5 98 18 156/95 98 Medical Decision Making MDM The patient is a 65-year-old male with a history of CAD, hypertension who presents to the emergency department with complaints of bilateral lower extremity cramping onset just prior to arrival. Patient denies feeling wounds or any other associated symptoms. Denies any trauma Reports he has had this episodes in the past and it was due to dehydration. Denies any fevers, nausea or vomiting. CBC showed no leukocytosis, no anemia chemistry showed a creatinine of 1.6, mild hyponatremia, hypochloremia, CK level of 533. Patient received IV fluids. At this time patient reports no longer having any cramps. Patient with no wounds, no edema redness to lower extremities. Patient with no history of trauma. On physical exam patient is in no acute distress, nontoxic appearance. We will discharge patient to follow up with PCP. Differential diagnosis: Electrolyte imbalance, rhabdomyolysis, dehydration Need for hospitalization: Patient does not meet criteria for hospitalization. There are no social concerns with this patient. DX & DISP Disposition: Discharge Departure Impression: Primary Impression: Mild dehydration Additional Impression: Leg cramping Condition: Stable Additional Instructions: Please follow up with your primary doctor in 1-2 days. Continue oral hydration as tolerated. If anything worsens please return to ER. FOLLOW-UP WITH PRIMARY CARE PROVIDER IN 1 TO 2 DAYS. TAKE MEDICATIONS DIRECTED HERE IN THE EMERGENCY ROOM. OKAY TO CONTINUE HOME MEDICATIONS UNLESS OTHERWISE DISCUSSED DURING YOUR VISIT IN THE EMERGENCY ROOM TODAY. RETURN TO YOUR NEAREST EMERGENCY ROOM IF SYMPTOMS WORSEN OR IF THERE IS NO IMPROVEMENT. CALL 911 IF YOU NEED IMMEDIATE ASSISTANCE. TAKE TYLENOL [id number] NEEDED AND IF NO CONTRAINDICATIONS ARE PRESENT. INCREASE ORAL HYDRATION. A WOUND CULTURE OR URINE CULTURE WAS ORDERED HERE IN THE EMERGENCY ROOM DEPARTMENT PLEASE FOLLOW-UP WITH PRIMARY CARE PROVIDER AND ADVISE THEM TO GET REPEAT PORTS FROM OUR FACILITY. IF YOU HAD ANY AMANDA WRAP/SPLINTS THAT WERE APPLIED HERE, PLEASE DO NOT REMOVE THEM UNTIL YOU SEE YOUR PRIMARY CARE OR SPECIALTY. Referrals: GRETA HUNTLEY MD (PCP) Time of Disposition: 00:00 I have reviewed the case, and I agree with, Diagnosis and Plan NIRMAL CANTOR Mar 05, 2025 22:31
[2025-03-05] MEDS: 0.9%NACL 1000ML 1,000 ML IV ONE (23:31)
[2025-03-06 00:56] VITALS: BP 144/78; PULSE 61; RESP 18; TEMP 98.2; O2SAT 98
== END 2025-03-06 00:57 | disposition home or self-care (01) ==
LOC: EDH 20:53
DX: E86.0 Dehydration (principal); R25.2 Cramp and spasm; I11.9 Hypertensive heart disease without heart failure; I25.10 Atherosclerotic heart disease of native coronary artery without angina pectoris; Z79.899 Other long term (current) drug therapy; Z88.0 Allergy status to penicillin; Z88.6 Allergy status to analgesic agent; Z95.5 Presence of coronary angioplasty implant and graft
CPT/HCPCS: 99283; 82550; 83735; 80048; 85025; 36415; J7030